=== PATIENT | female | born 1955 | race Caucasian/White ===

== ENCOUNTER 2020-08-16 05:36 | Outpatient (RCR) | payer MEDICARE, OTHER ==
[~2020-08-16] VITALS: Ht 162 cm; Wt 64.5 kg
[~2020-08-16 05:36] MED LIST: CHOL20003 PO; CLC600T PO; DIPH25CA48 PO; DULO60CA6 PO; FOLI0.8T PO; MULT-1136 PO; PANT40TA52 PO
[2020-08-20] MEDS ORDERED: IBUP-844 PO (07:12)
[2020-08-20] MEDS ORDERED: SIME80TA16 PO (07:12)
[2020-08-20] MEDS ORDERED: DCS100C PO (07:12)
[2020-08-20] MEDS ORDERED: HYDR-34 PO (07:12)
== END 2020-08-16 09:54 | disposition home or self-care (01) ==
LOC: PREOP 05:36
PROVIDERS: ATTEND Obstetrics & Gynecology
DX: Z01.818 Encounter for other preprocedural examination (principal); Z01.812 Encounter for preprocedural laboratory examination; N81.3 Complete uterovaginal prolapse; Z20.828 Contact with and (suspected) exposure to other viral communicable diseases
CPT/HCPCS: 87635

== ENCOUNTER 2020-08-20 06:07 | Day surgery (SDC) | payer MEDICARE, OTHER ==
[2020-08-20] VITALS (12 sets, daily range): BP systolic 90–119; BP diastolic 52–73
[~2020-08-20] VITALS: Ht 162 cm; Wt 64.5 kg
[2020-08-20] MEDS ORDERED: NS (IVPB) 100 ML ONE (06:19)
[2020-08-20] MEDS ORDERED: ESTROGENS CONJ. CREAM 30 GM (PREMARIN) TUBE ONE (06:19)
[2020-08-20] MEDS ORDERED: VASOPRESSIN INJECTION 20 UNIT/ML VIAL ONE (06:19)
[2020-08-20] MEDS ORDERED: BUPIVACAINE 0.25% 30 ML (SENSORCAINE) VIAL ONE (06:19)
[2020-08-20] MEDS ORDERED: LACTATED RINGERS 1,000 ML IV SCH (06:44)
[2020-08-20] MEDS ORDERED: ceFAZolin INJECTION 1,000 MG in WATER (STERILE) FOR INJECTION 10 ML IV ONE (06:45)
[2020-08-20] MEDS ORDERED: ONDANSETRON 4 MG/2 ML (SDV) Z0FRAN ONE ×2 (06:50→06:52)
[2020-08-20] MEDS ORDERED: FAMOTIDINE 20MG/2ML IV (PEPCID) ONE (06:51)
[2020-08-20] MEDS ORDERED: NEOSTIGMINE 3 MG/3 ML VIAL ONE (06:52)
[2020-08-20] MEDS ORDERED: LIDOCAINE PF 2% 5 ML (XYLOCAINE) VIAL ONE (06:52)
[2020-08-20] MEDS ORDERED: proPOfol 200 MG/20 ML (DIPRIVAN) VIAL IV ONE (06:52)
[2020-08-20] MEDS ORDERED: SEVOFLURANE (ULTANE) 15 ML INHAL SOLN ONE (06:52)
[2020-08-20] MEDS ORDERED: GLYCOPYRROLATE 0.2 MG/ML (ROBINUL) 2 ML VIAL ONE (06:52)
[2020-08-20] MEDS ORDERED: ROCURONIUM 10 MG/ML 5 ML SYRINGE IV ONE (06:52)
[2020-08-20] MEDS ORDERED: fentaNYL INJECTION 100 MCG/2 ML AMP ONE (06:52)
[2020-08-20] MEDS ORDERED: MIDAZOLAM 2 MG/2 ML (VERSED) VIAL ONE (06:53)
[2020-08-20 06:58] LABS: BASOPHILS % (AUTO) 0 % (0-10); EOSINOPHILS # (AUTO) 0.1 10^3/uL (0.0-0.3); EOSINOPHILS % (AUTO) 1 % (0-10); HEMATOCRIT 44 % (35-52); HEMOGLOBIN 13.6 g/dL (11.5-16.0); LYMPHOCYTES # (AUTO) 1.7 10^3/uL (1.0-4.0); LYMPHOCYTES % (AUTO) 20 % (12-44); MEAN CORPUSCULAR HEMOGLOBIN 27 pg (25-34); MEAN CORPUSCULAR HGB CONC 31 g/dL (32-36); MEAN CORPUSCULAR VOLUME 87 fL (80-99); MEAN PLATELET VOLUME 9.7 fL (9.0-12.2); MONOCYTES # (AUTO) 0.5 10^3/uL (0.0-1.0); MONOCYTES % (AUTO) 6 % (0-12); NEUTROPHILS % (AUTO) 72 % (42-75); PLATELET COUNT 360 10^3/uL (130-400); WHITE BLOOD COUNT 8.3 10^3/uL (4.3-11.0)
[2020-08-20] MEDS ORDERED: FAMOTIDINE 20MG/2ML IV (PEPCID) IV ONE (07:00)
[2020-08-20] MEDS ORDERED: ONDANSETRON 4 MG/2 ML (SDV) Z0FRAN IV ONE (07:00)
[2020-08-20] MEDS: LACTATED RINGERS 1,000 ML IV PRN ×2 (07:05→08:30)
--- NOTE | 2020-08-20 07:06 | Progress Note-Pre Operative ---
Pre-Operative Progress Note H&P Reviewed The H&P was reviewed, patient examined and no changes noted. Date Seen by Provider: Aug 20, 2020 Time Seen by Provider: 07:00 Date H&P Reviewed: Aug 20, 2020 Time H&P Reviewed: 07:00 Pre-Operative Diagnosis: POP, Rectocele MITCH GARCIA DO Aug 20, 2020 07:06
[2020-08-20] MEDS ORDERED: ceFAZolin 2 GM IV Premixed 50 ML ONE (07:07)
[2020-08-20] MEDS ORDERED: metroNIDAZOLE 500MG/100ML IVPB 100 ML ONE (07:07)
--- NOTE | 2020-08-20 07:10 | Discharge Inst-Women's Service ---
Discharge Inst-Women's Serv Depart Medication/Instructions New, Converted or Re-Newed RX: RX on Chart Final Diagnosis POD 1 RATLH c BSO and P repair Problems Reviewed?: Yes Consults/Follow Up Additional Follow Up: Yes Orders/Referrals Dr. Aawd in 7-10 days and in 8 weeks Activity Activity: Activity as Tolerated Driving Instructions: No Driving for 1 Week NO SMOKING: NO SMOKING Nothing Inside Vagina: No Douching, No [place], No Tampons Diet Discharge Diet: No Restrictions Symptoms to Report to : Bleeding Excessive, Pain Increased, Fever Over 101 Degrees F, Vaginal Bleeding Increase, Questions/Concerns For Any Problems or Questions: Contact Your Physician Skin/Wound Care Infection Signs and Symptoms: Increased Redness, Foul Odor of Wound, Increased Drainage, Skin Itchy or Has a Rash, Increased Swelling, Temperature Above 101 F Operative Area Clean and Dry: Keep Incision Clean/Dry Stitches/[place]/Dermabond: Dermabond, Care of Stitches Bathing Instructions: MITCH Macedo DO Aug 20, 2020 07:10
[2020-08-20] MEDS ORDERED: DCS100C PO (07:12)
[2020-08-20] MEDS ORDERED: HYDR-34 PO (07:12)
[2020-08-20] MEDS ORDERED: SIME80TA16 PO (07:12)
[2020-08-20] MEDS ORDERED: IBUP-844 PO (07:12)
[2020-08-20] MEDS ORDERED: SIMETHICONE 80 MG (MYLICON) CHEW PO PRN (07:15)
[2020-08-20] MEDS ORDERED: CATHETER FLUSH 10 ML SYR IV PRN (07:15)
[2020-08-20] MEDS ORDERED: DOCUSATE SODIUM 100 MG (COLACE) CAP PO PRN (07:15)
[2020-08-20] MEDS ORDERED: metroNIDAZOLE 500 MG/100 ML IVPB (PRE-MIX) IV ONE (07:15)
[2020-08-20] MEDS ORDERED: ONDANSETRON 4 MG/2 ML (SDV) Z0FRAN IV PRN (07:15)
[2020-08-20] MEDS ORDERED: CHLORASEPTIC LOZENGE MM PRN (07:15)
[2020-08-20] MEDS ORDERED: ZOLPIDEM 5 MG (AMBIEN) TAB PO PRN (07:15)
[2020-08-20] MEDS ORDERED: HYDROmorphone 2 MG/ML VIAL (DILAUDID) IV PRN (07:15)
[2020-08-20] MEDS ORDERED: ANTACID SUSP 30 ML UDC (MYLANTA) PO PRN (07:15)
[2020-08-20] MEDS ORDERED: ceFAZolin 2 GM/50 ML (PRE-MIXED) IV ONE (07:15)
[2020-08-20] MEDS ORDERED: PHENYLEPHRINE 100 MCG/ML 10 ML (ANESTHESIA) SYR ONE (07:35)
[2020-08-20] MEDS ORDERED: KETOROLAC 30 MG/ML VIAL ONE (09:13)
[2020-08-20] MEDS ORDERED: morphine INJ 10 MG/ML 1ML (SYR OR VIAL) IVP ONE (09:15)
[2020-08-20] MEDS ORDERED: PROMETHAZINE INJ 25 MG/ML (PHENERGAN) AMP IVP ONE (09:15)
[2020-08-20] MEDS ORDERED: ONDANSETRON 4 MG/2 ML (SDV) Z0FRAN IVP PRN (09:15)
[2020-08-20] MEDS ORDERED: HYDROmorphone 2 MG/ML VIAL (DILAUDID) IV ONE (09:15)
[2020-08-20] MEDS: KETOROLAC 30 MG/ML VIAL IV PRN ×3 (09:18→20:53)
[2020-08-20] MEDS ORDERED: HYDROmorphone 2 MG/ML VIAL (DILAUDID) ONE (09:35)
--- NOTE | 2020-08-20 10:05 | NUR ---
DIPTI WINTER admitted to room 3306-1 VIA PT BED AFTER A ROBOTIC ASSISTED TOTAL LAPAROSCOPIC HYSTERECTOMY, BILATERAL SALPINGO-OOPHORECTOMY, AND POSTERIOR COLPORRHAPHY TODAY BY DR. GARCIA. DIPTI WINTER introduced to surroundings, call light, bed controls, phone, TV, temperature control, lights, meal times, smoking policy, visitor policy, side rail policy, bathrooms and showers. Patient Rights given to patient in the handbook.
--- NOTE | 2020-08-20 10:30 | NUR ---
INSTRUCTED OIL EXPELLER LIGHT OPERATION, BED CONTROLS, AND MENU.
--- NOTE | 2020-08-20 10:50 | NUR ---
VSS. STATES WANTS TO REST. ROOM DARKENED. RATING PAIN 4/10. DECLINES NEED FOR MEDICATION AT THIS TIME.
--- NOTE | 2020-08-20 11:00 | NUR ---
RT NOTIFIED OF NEED FOR INCENTIVE SPIROMETRY.
--- NOTE | 2020-08-20 12:00 | NUR ---
DOING WELL. VSS. 50MLS YELLOW URINE IN CHAMBER. TAKING FLUIDS WELL.
--- NOTE | 2020-08-20 13:00 | NUR ---
EATING LUNCH. STATES SHE IS STARTING TO HURT. PLAN TO GIVE PAIN MEDICATION AFTER LUNCH. DOING WELL.
--- NOTE | 2020-08-20 13:30 | NUR ---
REPORT TO LUCIA DOUGLAS RN AND KIRSTIE ZAMORA RN.
--- NOTE | 2020-08-20 13:45 | NUR ---
RN's to room to introduce self and inform pt of staff change. Pt denies any needs or concerns at this time.
[2020-08-20] MEDS: HYDROcodone/APAP 7.5 MG/325 MG (LORTAB, LORCET PLUS) TABLET PO PRN ×2 (13:48→22:16)
--- NOTE | 2020-08-20 15:16 | OPERATIVE REPORT ---
DATE OF SERVICE: 08/20/2020 PREOPERATIVE DIAGNOSES: 1. A 65-year-old female with pelvic organ prolapse. 2. Rectocele, grade III. POSTOPERATIVE DIAGNOSES: 1. A 65-year-old female with pelvic organ prolapse. 2. Rectocele, grade III. PROCEDURES PERFORMED: Robotic-assisted total laparoscopic hysterectomy with bilateral salpingo-oophorectomy and posterior colporrhaphy. SURGEON: Bhavesh Awad DO. PHARMACY DATA ANALYST: Carli Phillip DNP, was necessary for manipulation and retraction throughout the procedure. ANESTHESIA: General endotracheal. ESTIMATED BLOOD LOSS: 50 mL. URINE OUTPUT: 100 mL clear at the end of the procedure. FLUIDS: 2100 mL lactated Ringer's solution. FINDINGS: Grossly normal appearing lower abdominal anatomy, grossly normal appearing uterus, bilateral fallopian tubes and ovaries. Grossly normal-appearing external female genitalia with the exception of a grade III rectocele and a grade I to II cystocele at the start of the procedure. SPECIMEN SENT: Uterus, bilateral fallopian tubes and ovaries. INDICATIONS FOR PROCEDURE: This 65-year-old female is a patient, who had sought care in my office for worsening pelvic organ prolapse and issues with her rectocele needing to stick her finger and to reduce the rectocele vaginally in order to pass stool. I discussed with the patient alternatives to management of this disorder including a pessary placement; however, the patient wanted to proceed with more definitive measures. I discussed with the patient treatment for pelvic organ prolapse including a hysterectomy and possible anterior and posterior colporrhaphy. Risks of procedure were discussed with the patient in detail including risks of bleeding, infection, damage to surrounding structures including, but not limited to bowel, bladder, ureter, kidneys, possible need for reoperation, postoperative complications, recovery time, risk from anesthesia and even . After everything was discussed with the patient in detail, consent was obtained in the preoperative area and the patient was taken to the operating room. OPERATIVE REPORT IN DETAIL: Once in the operating room, anesthesia was found to be adequate. She was placed in a dorsal lithotomy position and prepped and draped in normal sterile fashion. A timeout was performed. Mcdaniels catheter was placed using a sterile technique. A timeout was performed. A weighted speculum was inserted into the patient's vagina. Right angle retractor was used to visualize the cervix, which was grasped at 12 o'clock position using a long Allis clamp and 0 Vicryl suture. It was then placed at the anterior lip of the cervix and used as my retraction point. I then gently sound the uterine cavity, depth was found to be 6 cm. I selected a 6 cm Yesica uterine manipulator tip and a 125 cm colpotomy ring. The manipulator tip was advanced into the uterus and the colpotomy ring was advanced around the vaginal fornix. Once this was in place, I was able to appreciate bimanual manipulation on exam. I removed all the other instruments from the patient's vagina and performed change of gloves and took my attention to the abdomen where infraumbilically I infiltrated this area using 0.25% Marcaine and made an 8 mm incision with a knife and directed Veress needle through the incision. The intraperitoneal placement was confirmed using saline drop test. I then proceeded with insufflation using CO2 gas and opening pressure of 5 mmHg was noted. I proceeded to max pressure of 15 mmHg, at which point, I removed the Veress needle and introduced an 8 mm blunt laparoscopic da Mercedes trocar. Once this was in place, I was able to confirm intraperitoneal placement using da Mercedes laparoscope. All of the upper abdominal anatomy appears grossly normal upon inspection. I had the patient placed in a steep Trendelenburg and made visualize all my pelvic anatomy as described in my findings above. I placed two lateral trocars, both 8 mm trocars approximately 8 cm lateral to my infraumbilical trocar. Once these trocars were in place safely under direct visualization of laparoscope, I brought in the da Mercedes robot and docked it in appropriate fashion. I placed the vessel sealer in the left hand and monopolar mahamed in the right hand performed the following dissection bilaterally. I started at the infundibulopelvic ligament. I bipolar cauterized and transected using the vessel sealer. I then grasped the round ligament, bipolar cauterized and transected using the vessel sealer. I then grasped the entire broad ligament, which I bipolar cauterized and transected using vessel sealer. I did this down to the level of the lower uterine segment, at which point, I the anterior and posterior leaflets of the broad ligament. The anterior leaflet was taken around the anterior vaginal fornix. The posterior leaflet was taken down the posterior vaginal fornix. This allowed me to skeletonize the uterine vessels laterally, which I then bipolar cauterized and transected using a vessel sealer. I then created a colpotomy at 12 o'clock position using monopolar mahamed and took this circumferentially around the vaginal fornix amputating the cervix away from the vagina. The entire specimen was then removed through the vagina. I then closed the lateral vaginal apices of the vaginal cuff using 2-0 Vicryl suture in a [id number] fashion colposuspending the uterosacral ligaments. I then closed the remainder of the vaginal cuff using 2-0 V-Loc in a running fashion, after which there was no active bleeding noted from any of my dissection plane. All the instruments robotically and needles were removed. I then undocked the da Mercedes robot and proceeded with the remainder of the case laparoscopically. I copiously irrigated the pelvis using normal saline. There was no active bleeding noted from any of my dissection planes. I placed FloSeal hemostatic agent over all my planes of dissection to ensure excellent postoperative hemostasis. I then had the patient taken out of steep Trendelenburg where I removed the lateral trocars under direct visualization of the laparoscope. The infraumbilical trocar was left in place to release insufflation and to introduce 10 mL of 0.25% Marcaine into the peritoneal cavity for postoperative pain management. I then removed this trocar as well. The skin was reapproximated using 4-0 Monocryl in an interrupted subcuticular stitches. Dermabond was applied to incision and Band-Aids were placed over the incision as well. I then took my attention back to the vagina, where the cystocele was found to be reduced, but the rectocele was still persistent. I decided to proceed with a rectocele repair. I injected all margins, subcutaneous and submucosally of the rectocele using vasopressin, a concentration of 20 units in 100 mL of normal saline. After this was done, an adequate blanching was noted. I made a triangular incision on the perineum going to a point down the midline of the perineum. I then took the cutaneous tissue off of the subcutaneous tissue using a knife. I then undermined the mucosal tissue off the rectocele using the Metzenbaum scissors down to its most proximal margin. I then trimmed the excess rectovaginal mucosa and rectovaginal fascia. I then reapproximated the rectovaginal mucosa and fascia of the lateral aspect of the resection margin using 3-0 Vicryl suture in a running locked fashion to the layer of the mucocutaneous junction, at which point I placed two crown sutures using 2-0 Vicryl suture in the bulbocavernosus muscles of the vulva subcutaneously. I then reapproximated the submucosa of the perineum using a continued 3-0 Vicryl suture followed by running it from the more distal apex of the incision using the 3-0 Vicryl suture subcuticularly and then buried the knot within the repair, after which, there was no active bleeding noted from any of my dissection planes. I packed the vagina using Premarin soaked vaginal packing. Mcdaniels catheter was left in place. The patient tolerated the procedure well and sent to recovery area in a stable condition. Lap and sponge counts were correct at the end of the procedure. Instrument counts were correct as well. Two grams of Ancef and 500 mg of Flagyl were given preoperatively for infection prophylaxis. Job ID: [id number] DocumentID: [id number] Dictated Date: 08/20/2020 09:43:35 Relay Associate Date: 08/20/2020 15:16:04 Dictated By: DO LAFRED COLEMAN
--- NOTE | 2020-08-20 15:40 | NUR ---
RT notified of need for IS instruction
[2020-08-20] MEDS: LACTATED RINGERS 1,000 ML IV SCH ×2 (16:03→23:50)
--- NOTE | 2020-08-20 22:00 | NUR ---
fresh ice water given.
--- NOTE | 2020-08-21 00:49 | OPERATIVE REPORT ---
DATE OF SERVICE: PREOPERATIVE DIAGNOSIS: A 65-year-old female with fibroid . DICTATION ENDS HERE Job ID: [id number] DocumentID: [id number] Dictated Date: 08/20/2020 14:23:20 Account Support Analyst Date: 08/21/2020 00:23:35 Dictated By: MITCH GARCIA DO
[2020-08-21 02:10] VITALS: BP 97/62
[2020-08-21] MEDS ORDERED: KETOROLAC 30 MG/ML VIAL ONE (03:10)
[2020-08-21] MEDS: IBUPROFEN 600 MG (MOTRIN) TAB PO SCH ×2 (03:27→09:35)
[2020-08-21] MEDS ORDERED: KETOROLAC 30 MG/ML VIAL IVP ONE (03:30)
[2020-08-21] MEDS: HYDROcodone/APAP 7.5 MG/325 MG (LORTAB, LORCET PLUS) TABLET PO PRN (05:58)
[2020-08-21 06:00] VITALS: BP 85/56
--- NOTE | 2020-08-21 07:51 | NUR ---
Dr. Awad here to see patient. New orders received.
--- NOTE | 2020-08-21 08:14 | NUR ---
Patient assisted up to the restroom. + void noted. Pericare reviewed with patient. Patient up to ambulate in the halls after using the restroom.
[2020-08-21 09:36] VITALS: BP 98/61
--- NOTE | 2020-08-21 09:36 | NUR ---
AM shift assessment completed and vital signs obtained, see interventions. Plan of care reviewed with patient. Patient verbalizes understanding and questions answered. Addendum: 08/21/20 at 1050 by BK QUINN RN Scheduled Motrin and Colace PO given.
--- NOTE | 2020-08-21 09:58 | Anesthesia-General Post-Op ---
General Patient Condition Mental Status/LOC: Same as Preop Cardiovascular: Satisfactory Nausea/Vomiting: Absent Respiratory: Satisfactory Pain: Controlled Complications: Absent Post Op Complications Complications None Follow Up Care/Instructions Patient Instructions None needed. Anesthesia/Patient Condition Patient Condition Patient is doing well, no complaints, stable vital signs, no apparent adverse anesthesia problems. No complications reported per nursing. NASREEN BUNN CRNA Aug 21, 2020 09:58
--- NOTE | 2020-08-21 10:25 | NUR ---
Discharge instructions and medications reviewed with patient both written and verbally. Patient verbalizes understanding and written prescriptions given.
--- NOTE | 2020-08-21 10:43 | NUR ---
Patient discharged at this time via wheelchair and accompanied down to awaiting private vehicle by this RN. No signs or symptoms of distress noted.
== END 2020-08-21 10:43 | disposition home or self-care (01) ==
LOC: SDC 06:07 → WS 10:11 → SDC 08-21 10:43
PROVIDERS: ATTEND Obstetrics & Gynecology
DX: N81.3 Complete uterovaginal prolapse (principal); N80.0 Endometriosis of uterus; N83.8 Other noninflammatory disorders of ovary, fallopian tube and broad ligament; N81.89 Other female genital prolapse; F41.9 Anxiety disorder, unspecified; F32.9 Major depressive disorder, single episode, unspecified; K21.9 Gastro-esophageal reflux disease without esophagitis; J45.909 Unspecified asthma, uncomplicated; K59.04 Chronic idiopathic constipation; M06.9 Rheumatoid arthritis, unspecified; E66.9 Obesity, unspecified; Z68.24 Body mass index [BMI] 24.0-24.9, adult; Z79.51 Long term (current) use of inhaled steroids; Z79.899 Other long term (current) drug therapy; Z88.1 Allergy status to other antibiotic agents; Z88.8 Allergy status to other drugs, medicaments and biological substances; Z80.3 Family history of malignant neoplasm of breast; Z83.3 Family history of diabetes mellitus
CPT/HCPCS: 36415; 85025; 86850; 86900; 86901; 87081

== ENCOUNTER 2021-01-09 05:33 | Outpatient (RCR) | payer MEDICARE ==
[~2021-01-09] VITALS: Ht 162.6 cm; Wt 65.0 kg
[~2021-01-09 05:33] MED LIST changes: +DCS100C PO; -FOLI0.8T PO; +FOLI0.8T4 PO; +HYDR-34 PO; +IBUP-844 PO; +RT-ALBUINH IH; +SIME80TA16 PO
== END 2021-01-09 10:06 | disposition home or self-care (01) ==
LOC: PREOP 05:33
PROVIDERS: ATTEND Specialist
DX: Z01.812 Encounter for preprocedural laboratory examination (principal); H25.11 Age-related nuclear cataract, right eye; Z20.822 Contact with and (suspected) exposure to COVID-19
CPT/HCPCS: 87635

== ENCOUNTER 2021-01-11 06:58 | Day surgery (SDC) | payer MEDICARE, OTHER ==
[~2021-01-11] VITALS: Ht 162.6 cm; Wt 65.0 kg
[2021-01-11] MEDS ORDERED: TIMOLOL MALEATE 0.5% 5 ML (TIMOPTIC) BTL OU PRN (07:00)
[2021-01-11] MEDS ORDERED: POVIDONE (BETADINE) OPHTH SOLN 5% 30 ML OP ONE (07:00)
[2021-01-11] MEDS ORDERED: MOXIFLOXACIN OPHTH SOLN 5 MG/ML 0.3 ML SYRINGE OP ONE (07:00)
[2021-01-11] MEDS ORDERED: LIDOCAINE PF 1% 2 ML VIAL IR PRN (07:00)
[2021-01-11] MEDS: TETRACAINE 0.5% OPHTH SOLN 4 ML BTL (SINGLE DOSE ONLY) OU PRN ×4 (07:09→07:26)
[2021-01-11 07:10] VITALS: BP 116/71
[2021-01-11] MEDS: TROPICAMIDE 1% OPH SOLN (MYDRIACYL) 15 ML BTL OP SCH ×3 (07:16→07:26)
[2021-01-11] MEDS: PHENYLEPHRINE 10% OPHTH (NEO-SYN) 5 ML BTL OU SCH ×3 (07:16→07:26)
--- NOTE | 2021-01-11 08:15 | Ophthalmologist Pre-Op Note ---
Pre-Operative Progress Note H&P Reviewed The H&P was reviewed, patient examined and no changes noted. Date H&P Reviewed: Jan 11, 2021 Time H&P Reviewed: 08:15 Pre-Op Dx Cataract, Right Eye ACE VUONG MD Jan 11, 2021 08:15
[2021-01-11] MEDS ORDERED: MIDAZOLAM 2 MG/2 ML (VERSED) VIAL ONE (08:25)
[2021-01-11] MEDS ORDERED: acetaZOLAMIDE ER 500 MG CAP (DIAMOX SEQUELS) PO ONE (08:30)
--- NOTE | 2021-01-11 08:42 | Ophthalmology Operative Report ---
Cataract removal/placement IOL PREOPERATIVE DIAGNOSIS: Cataract Right Eye POSTOPERATIVE DIAGNOSIS: Cataract Right Eye PROCEDURE: Cataract removal and placement of posterior chamber implant, right eye SURGEON: Steve Vuong ANESTHESIA: Topical with sedation COMPLICATIONS: None ESTIMATED BLOOD LOSS: Minimal DESCRIPTION OF PROCEDURE: After proper informed consent was obtained, the patient, a 65 female, was taken to the Operating Room and the right eye was anesthetized with tetracaine. The right eye was then prepped and draped in the usual manner. A wire lid speculum was placed. A paracentesis was made at the left hand position. Preservative free lidocaine was injected into the anterior chamber followed by viscoelastic. A clear corneal incision was made in the temporal position. A capsulorrhexis was preformed and the central nuclear and cortical material were removed. The posterior capsule was polished and Hernan 21.5 AU00T0 IOL was placed into the capsular bag. The residual viscoelastic was aspirated and balanced saline solution was injected into the anterior chamber. Moxifloxacin was injected into the anterior chamber. The wound was checked and found to be water tight. The patient tolerated the procedure well without complications. STEVE VUONG MD Jan 11, 2021 08:42
[2021-01-11 08:55] VITALS: BP 117/66
--- NOTE | 2021-01-11 10:32 | Anesthesia-General Post-Op ---
MAC Patient Condition Mental Status/LOC: Same as Preop Cardiovascular: Satisfactory Nausea/Vomiting: Absent Respiratory: Satisfactory Pain: Controlled Complications: Absent Post Op Complications Complications None Follow Up Care/Instructions Patient Instructions None needed. Anesthesiology Discharge Order Discharge Order Patient was seen this morning after the procedure and she was doing well, no complaints, stable vital signs, no apparent adverse anesthesia problems. JAMIA LANCASTER DO Jan 11, 2021 10:32
== END 2021-01-11 08:55 | disposition home or self-care (01) ==
LOC: SDC 06:58
PROVIDERS: ATTEND Specialist
DX: H25.11 Age-related nuclear cataract, right eye (principal); J45.909 Unspecified asthma, uncomplicated; F32.9 Major depressive disorder, single episode, unspecified; K21.9 Gastro-esophageal reflux disease without esophagitis; M19.90 Unspecified osteoarthritis, unspecified site; Z79.899 Other long term (current) drug therapy; Z79.51 Long term (current) use of inhaled steroids; Z88.1 Allergy status to other antibiotic agents; Z88.8 Allergy status to other drugs, medicaments and biological substances; Z83.3 Family history of diabetes mellitus
CPT/HCPCS: 66984; V2632

== ENCOUNTER 2021-02-01 06:55 | Day surgery (SDC) | payer MEDICARE ==
[~2021-02-01] VITALS: Ht 162.6 cm; Wt 65.0 kg
[2021-02-01] MEDS ORDERED: MOXIFLOXACIN OPHTH SOLN 5 MG/ML 0.3 ML SYRINGE OP ONE (07:00)
[2021-02-01] MEDS ORDERED: TIMOLOL MALEATE 0.5% 5 ML (TIMOPTIC) BTL OU PRN (07:00)
[2021-02-01] MEDS ORDERED: LIDOCAINE PF 1% 2 ML VIAL IR PRN (07:00)
[2021-02-01] MEDS ORDERED: POVIDONE (BETADINE) OPHTH SOLN 5% 30 ML OP ONE (07:00)
[2021-02-01 07:05] VITALS: BP 116/78
[2021-02-01] MEDS: TETRACAINE 0.5% OPHTH SOLN 4 ML BTL (SINGLE DOSE ONLY) OU PRN ×4 (07:06→07:32)
[2021-02-01] MEDS: TROPICAMIDE 1% OPH SOLN (MYDRIACYL) 15 ML BTL OP SCH ×3 (07:15→07:33)
[2021-02-01] MEDS: PHENYLEPHRINE 10% OPHTH (NEO-SYN) 5 ML BTL OU SCH ×3 (07:15→07:33)
[2021-02-01] MEDS ORDERED: MIDAZOLAM 2 MG/2 ML (VERSED) VIAL ONE (07:53)
--- NOTE | 2021-02-01 08:08 | Ophthalmologist Pre-Op Note ---
Pre-Operative Progress Note H&P Reviewed The H&P was reviewed, patient examined and no changes noted. Date H&P Reviewed: Feb 01, 2021 Time H&P Reviewed: 08:08 Pre-Op Dx Cataract, Left Eye ACE VUONG MD Feb 01, 2021 08:08
--- NOTE | 2021-02-01 08:29 | Ophthalmology Operative Report ---
Cataract removal/placement IOL PREOPERATIVE DIAGNOSIS: Cataract Left Eye POSTOPERATIVE DIAGNOSIS: Cataract Left Eye PROCEDURE: Cataract removal and placement of posterior chamber implant, left eye SURGEON: Steve Vuong ANESTHESIA: Topical with sedation COMPLICATIONS: None ESTIMATED BLOOD LOSS: Minimal DESCRIPTION OF PROCEDURE: After proper informed consent was obtained, the patient, a 66 female, was taken to the Operating Room and the left eye was anesthetized with tetracaine. The left eye was then prepped and draped in the usual manner. A wire lid speculum was placed. A paracentesis was made at the left hand position. Preservative free lidocaine was injected into the anterior chamber followed by viscoelastic. A clear corneal incision was made in the temporal position. A capsulorrhexis was preformed and the central nuclear and cortical material were removed. The posterior capsule was polished and an Hernan 22.5 AU00T0 was placed into the capsular bag. The residual viscoelastic was aspirated and balanced saline solution was injected into the anterior chamber. Moxifloxacin was injected into the anterior chamber. The wound was checked and found to be water tight. The patient tolerated the procedure well without complications. STEVE VUONG MD Feb 01, 2021 08:29
[2021-02-01] MEDS ORDERED: acetaZOLAMIDE ER 500 MG CAP (DIAMOX SEQUELS) PO ONE (08:30)
[2021-02-01 08:40] VITALS: BP 121/76
--- NOTE | 2021-02-01 12:15 | Anesthesia-General Post-Op ---
MAC Patient Condition Mental Status/LOC: Same as Preop Cardiovascular: Satisfactory Nausea/Vomiting: Absent Respiratory: Satisfactory Pain: Controlled Complications: Absent Post Op Complications Complications None Follow Up Care/Instructions Patient Instructions None needed. Anesthesiology Discharge Order Discharge Order Patient is doing well, no complaints, stable vital signs, no apparent adverse anesthesia problems. No complications reported per nursing. PETER PIÑA CRNA Feb 01, 2021 12:15
== END 2021-02-01 08:57 | disposition home or self-care (01) ==
LOC: SDC 06:55
PROVIDERS: ATTEND Specialist
DX: H25.12 Age-related nuclear cataract, left eye (principal); J45.909 Unspecified asthma, uncomplicated; M19.90 Unspecified osteoarthritis, unspecified site; F32.9 Major depressive disorder, single episode, unspecified; K21.9 Gastro-esophageal reflux disease without esophagitis; K59.00 Constipation, unspecified; Z88.1 Allergy status to other antibiotic agents; Z79.1 Long term (current) use of non-steroidal anti-inflammatories (NSAID); Z79.899 Other long term (current) drug therapy; Z98.51 Tubal ligation status; Z90.710 Acquired absence of both cervix and uterus; Z98.890 Other specified postprocedural states; Z83.3 Family history of diabetes mellitus; Z82.49 Family history of ischemic heart disease and other diseases of the circulatory system
CPT/HCPCS: 66984; V2632

== ENCOUNTER 2021-09-11 05:35 | Outpatient (CLI) | payer MEDICARE ==
[~2021-09-11] VITALS: Ht 162.6 cm; Wt 70.5 kg
[~2021-09-11 05:35] MED LIST changes: +CALC600T91 PO; -CLC600T PO; -DCS100C PO; +DOCU-239 PO; -DULO60CA6 PO; +DULO60CA7 PO
[2021-09-11] MEDS ORDERED: MELO15TA39 PO (09:57)
[2021-09-11] MEDS ORDERED: MAGN400T39 PO (10:22)
[2021-09-11] MEDS ORDERED: RT-ALBUINH IH (10:22)
== END 2021-09-11 11:23 | disposition home or self-care (01) ==
LOC: PREOP 05:35
PROVIDERS: ATTEND Surgery
DX: Z01.818 Encounter for other preprocedural examination (principal)

== ENCOUNTER 2021-09-18 09:27 | Day surgery (SDC) | payer MEDICARE ==
--- NOTE | 2021-09-11 12:36 | HISTORY AND PHYSICAL ---
DATE OF SERVICE: PROCEDURE DATE: 09/18/2021. ATTENDING PRIMARY CARE PHYSICIAN: Dr. Kolton Blake. HISTORY OF PRESENT ILLNESS: The patient is a 66-year-old female who was referred over to us in need of a screening colonoscopy. She reports her last colonoscopy was 15 years ago, which she reports was normal. She reports that since that time, she has not had any blood in her stool. He denies any family history of any colon cancer. She also denies any abdominal pain, diarrhea or any constipation. PAST MEDICAL HISTORY: Gastroesophageal reflux disease, degenerative joint disease, anxiety, depression and asthma. PAST SURGICAL HISTORY: Laparoscopic hiatal hernia repair and Taylor fundoplication 07/2016, complete vaginal hysterectomy and repair of rectal prolapse 08/2020, bilateral cataracts removed 2019, tubal ligation in 1981, right carpal tunnel release, 2010. ALLERGIES: AUGMENTIN. MEDICATIONS: Albuterol sulfate 108 mcg 1 puff every 4 hours p.r.n., meloxicam 15 mg daily, Protonix 40 mg daily, duloxetine 60 mg daily. SOCIAL HISTORY: Negative for tobacco smoke. Social for alcohol. FAMILY HISTORY: Father, diabetes, hypertension. Mother, stroke. Paternal grandmother, breast cancer. VITAL SIGNS: Blood pressure is 142/80. Current weight is 155.5 pounds at 5 feet 4 inches. REVIEW OF SYSTEMS: This is well-nourished female, in no acute distress. She is not experiencing any shortness of breath or difficulty breathing. No chest pain, palpitations or diaphoresis. No nausea, vomiting or abdominal pain. No diarrhea or constipation. No red blood per rectum. No dark tarry stools. No fever or chills. No recent inadvertent weight loss. All other review of systems negative. PHYSICAL EXAMINATION: CHEST: Clear. Good breath sounds bilaterally. HEART: Regular, no murmurs. EXTREMITIES: No lower extremity edema. Negative Homans sign. HEENT: No scleral icterus. NECK: No cervical lymphadenopathy. ABDOMEN: Soft, nontender, nondistended. SKIN: Warm, dry and pink. NEUROLOGIC: Awake, alert and oriented x3. ASSESSMENT AND PLAN: This is a 66-year-old female who is in need of a screening colonoscopy. At this time, we will proceed with scheduling her for a screening colonoscopy. Job ID: [id number] DocumentID: [id number] Dictated Date: 09/11/2021 12:00:31 Drawer In Stitch Bonding Machine Date: 09/11/2021 12:35:29 Dictated By: RIN CLAYTON APRN
[~2021-09-18] VITALS: Ht 162.6 cm; Wt 70.5 kg
[~2021-09-18 09:27] MED LIST changes: +MAGN400T39 PO; +MELO15TA39 PO
[2021-09-18] MEDS ORDERED: LACTATED RINGERS 1,000 ML IV ONE (09:37)
[2021-09-18] MEDS ORDERED: LACTATED RINGERS 1,000 ML IV STA (09:39)
[2021-09-18] MEDS ORDERED: LIDOCAINE JELLY 2% 6 ML SYRINGE MM PRN (09:45)
--- NOTE | 2021-09-18 09:49 | Progress Note-Pre Operative ---
Pre-Operative Progress Note H&P Reviewed The H&P was reviewed, patient examined and no changes noted. Date Seen by Provider: Sep 18, 2021 Time Seen by Provider: 09:30 Date H&P Reviewed: Sep 18, 2021 Time H&P Reviewed: 09:30 Pre-Operative Diagnosis: screening KEELY Juarez MD Sep 18, 2021 09:49
--- NOTE | 2021-09-18 09:50 | Discharge Inst-Surgical ---
D/C Lap Instructions-RONNY Follow Up Activity as tolerated High Fiber Diet 25g or more per day Avoid Alcohol, Caffeine, Spicy [place] and Acid foods. Drink 64 fluid oz or more of fluids per day. Symptoms to Report: Fever over 101 degree F, Nausea/Vomiting If any problems/questions: Contact your physician or go to Emergency Room KEELY JEFFERSON MD Sep 18, 2021 09:50
--- NOTE | 2021-09-18 09:51 | Conscious Sedation/ASA ---
Conscious Sedation Pre-Proced Time 09:30 ASA Score 2 For ASA 3 and 4: Consider anesthesia and medical clearance. Also, for patients with a history of failed moderate sedation consider anesthesia. Airway Lungs Heart ASA score ASA 1: a normal healthy patient ASA 2: a patient with a mild systemic disease (mid diabetes, controlled hypertension, obesity ASA 3: a patient with a severe systemic disease that limits activity (angina, COPD, prior Myocardial infarction) ASA 4: a patient with an incapacitating disease that is a constant threat to life (CHF, renal failure) ASA 5: a moribund patient not expected to survive 24 hrs. (ruptured aneurysm) ASA 6: a declared brain- patient whose organs are being harvested. For emergent operations, add the letter E after the classification Mallampati Classification Grade 2 Sedation Plan Analgesia, Amnesia, Plan communicated to team members, Discussed options with patient/fam, Discussed risks with patient/fam The patient is an appropriate candidate to undergo the planned procedure, sedation, and anesthesia. The patient immediately re-assessed prior to indication. KEELY JEFFERSON MD Sep 18, 2021 09:51
[2021-09-18] MEDS ORDERED: ONDANSETRON 4 MG (ZOFRAN) ORAL DISSOLVE TAB PO PRN (10:00)
[2021-09-18] MEDS ORDERED: ONDANSETRON 4 MG/2 ML (SDV) Z0FRAN IVP PRN (10:00)
[2021-09-18 10:01] VITALS: BP 135/79
[2021-09-18] MEDS ORDERED: PROPOFOL INJECTION 50 ML IV ONE (10:25)
[2021-09-18] MEDS ORDERED: MIDAZOLAM 2 MG/2 ML (VERSED) VIAL ONE (10:25)
[2021-09-18 11:05] VITALS: BP 107/60
[2021-09-18 11:10] VITALS: BP 110/63
[2021-09-18 11:15] VITALS: BP 110/63
--- NOTE | 2021-09-18 11:20 | Progress Note-Post Operative ---
Post-Operative Progess Note Surgeon (s)/Industry Analyst (s) Surgeon KEELY JEFFERSON MD Industry Analyst: none Pre-Operative Diagnosis screening colo Post-Operative Diagnosis mild chronic stage 1-2 ext and int hemorrhoids. Procedure & Operative Findings Date of Procedure 09/18/21 Procedure Performed/Findings colonoscopy Anesthesia Type mac Estimated Blood Loss Estimated blood loss (mL): minimal Specimens/Packing Specimens Removed none KEELY JEFFERSON MD Sep 18, 2021 11:20
[2021-09-18 11:34] VITALS: BP 110/63
--- NOTE | 2021-09-18 13:56 | Anesthesia-General Post-Op ---
MAC Patient Condition Mental Status/LOC: Same as Preop Cardiovascular: Satisfactory Nausea/Vomiting: Absent Respiratory: Satisfactory Pain: Controlled Complications: Absent Post Op Complications Complications None Follow Up Care/Instructions Patient Instructions None needed. Anesthesiology Discharge Order Discharge Order Patient is doing well, no complaints, stable vital signs, no apparent adverse anesthesia problems. No complications reported per nursing. OVIDIO YEPEZ CRNA Sep 18, 2021 13:56
--- NOTE | 2021-09-18 15:26 | OPERATIVE REPORT ---
DATE OF SERVICE: 09/18/2021 ATTENDING PRIMARY CARE PHYSICIAN: Kolton Blake MD. PREOPERATIVE DIAGNOSIS: Screening colonoscopy. POSTOPERATIVE DIAGNOSIS: Mild chronic stage II external and internal hemorrhoids. PROCEDURE PERFORMED: Colonoscopy. SURGEON: Keely Rehman MD. ANESTHESIA: Monitored anesthesia care. ESTIMATED BLOOD LOSS: Minimal. FINDINGS: Mild chronic stage II external and internal hemorrhoids. DISPOSITION: The patient tolerated the procedure well. INDICATIONS FOR PROCEDURE: The patient is a 66-year-old female referred over to us for a screening colonoscopy. She states that her initial colonoscopy was at around age 50 and she believes this to be normal. She does not have any complaints. She states that for the most part she does not have any major issues with diarrhea, no constipation as well as no red blood per rectum nor any dark tarry stools. She also does not report any family history of colon cancer. DESCRIPTION OF PROCEDURE: The patient was brought to the endoscopy suite and laid in the left lateral decubitus position. After adequate IV pain and sedative medications and monitored anesthesia care, a digital rectal examination was performed. Mild chronic stage II external and internal hemorrhoids were identified, which were not actively edematous nor inflamed and no bleeding. Normal sphincter tone was felt and there were no palpable masses. The endoscope was then intubated, the anus and rectum gently insufflated. The endoscope was then advanced through the valves of Levi of the rectum with no polyps or any neoplasms identified. Through the sigmoid colon, no diverticulosis identified. The endoscope was then advanced to the remainder of the descending, transverse and ascending colon to the cecum. These segments were normal. No polyps or any neoplasms identified. The endoscope was then slowly withdrawn while taking a second look and suctioning of residual air with no additional findings. The patient tolerated the procedure well. We will recommend continued medical management with a high fiber diet with incorporation of a fiber supplement, which should equal or exceed 25 grams daily as well as significant amounts of water to promote soft stools on a daily basis. If she is asymptomatic, she does not need another colonoscopy for another 10 years. Job ID: [id number] DocumentID: [id number] Dictated Date: 09/18/2021 11:07:26 Director Medical Science Date: 09/18/2021 15:26:06 Dictated By: KEELY REHMAN MD
== END 2021-09-18 11:40 | disposition home or self-care (01) ==
LOC: ENDO 09:27
PROVIDERS: ATTEND Surgery
DX: Z12.11 Encounter for screening for malignant neoplasm of colon (principal); K64.1 Second degree hemorrhoids; K21.9 Gastro-esophageal reflux disease without esophagitis; F41.9 Anxiety disorder, unspecified; F32.A Depression, unspecified; J45.909 Unspecified asthma, uncomplicated; Z88.1 Allergy status to other antibiotic agents; Z79.899 Other long term (current) drug therapy